=== PATIENT | male | born 1985 | race Caucasian/White ===

== ENCOUNTER 2021-08-17 10:07 | Emergency (ER) | payer OTHER ==
[2021-08-17 10:55] VITALS: BP 122/68; PULSE 64; TEMP 97.8; BMI 33.1
[2021-08-17] MEDS ORDERED: KETOROLAC TROMETHAMINE 15 MG/ML VIAL IM ONE (12:08)
[2021-08-17] MEDS ORDERED: KETOROLAC TROMETHAMINE 15 MG/ML VIAL ONE (12:57)
[2021-08-17 13:36] LABS: BASO % 0.5 % (0-2.0); EOS % 0.6 % (0-4.5); HEMOGLOBIN 13.8 GM/dL (11.7-16.9); LYMPH % 19.6 % (8-40); MCH 27.1 pg (25.7-33.7); MEAN CELL VOLUME 82.3 fl (80-96); MEAN PLT VOLUME 10.4 fl (7.5-11.1); MONO % 9.6 % (3.8-10.2); NEUT % 69.7 % (42.8-82.8); PLATELET COUNT 209 10^3/uL (134-434); RDW 13.2 % (11.9-15.9); WHITE BLOOD COUNT 7.2 K/mm3 (4.0-10.0)
[2021-08-17 13:50] LABS: CHLORIDE 107 mmol/L (98-107); SODIUM 142 mmol/L (136-145)
[2021-08-17 13:53] LABS: CALCIUM 9.1 mg/dL (8.5-10.1)
[2021-08-17 13:54] LABS: ALBUMIN 4.1 g/dl (3.4-5.0); ANION GAP 9 MMOL/L (8-16); BLOOD UREA NITROGEN 11.9 mg/dL (7-18); CO2 26 mmol/L (21-32); GLUCOSE,RANDOM 87 mg/dL (74-106)
[2021-08-17 13:57] LABS: SGOT/AST 7 U/L (15-37); SGPT/ALT 15 U/L (13-61)
[2021-08-17 13:59] LABS: BILIRUBIN,TOTAL 0.6 mg/dL (0.2-1); TOT PROT 7.4 g/dl (6.4-8.2)
[2021-08-17 14:00] LABS: ALK PHOS 65 U/L (45-117)
== END 2021-08-17 14:57 | disposition home or self-care (01) ==
LOC: JER 10:07
PROC: 3E0233Z Introduction of Anti-inflammatory into Muscle, Percutaneous Approach (ICD-10-PCS; principal; 2021-08-17)
DX: R07.89 Other chest pain (principal)
CPT/HCPCS: 36415; 71045-TC-FY; 80053; 82550; 84484; 85025; 93005; 93010; 99284-25